=== PATIENT | female | born 1970 | race African-American/Black ===

== ENCOUNTER 2021-03-19 17:25 | Emergency (ER) | payer OTHER ==
[~2021-03-19] VITALS: Ht 167.6 cm; Wt 85.0 kg
[2021-03-19] MEDS ORDERED: IV NORMAL SALINE 1000ML BAG 1,000 ML IV ONE (20:45)
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
[2021-03-19 23:00] VITALS: BP 138/70
== END 2021-03-19 23:13 | disposition home or self-care (01) ==
LOC: ER 17:25
DX: K14.8 Other diseases of tongue (principal); F31.9 Bipolar disorder, unspecified; F20.9 Schizophrenia, unspecified; Z88.2 Allergy status to sulfonamides; Z88.5 Allergy status to narcotic agent
CPT/HCPCS: 96360; 99283; J7030

== ENCOUNTER 2021-03-23 17:03 | Emergency (ER) | payer OTHER | END 2021-03-23 22:15 | disposition left against medical advice (07) | LOC: ER 17:03 | DX: R60.0 Localized edema (principal); Z53.21 Procedure and treatment not carried out due to patient leaving prior to being seen by health care provider ==

== ENCOUNTER → 2021-04-17 | Outpatient (CLI) | payer OTHER ==
[2021-03-19 23:00] VITALS: BP 138/70
--- NOTE | 2021-04-19 17:55 | CARD ---
MR#: [id number] Date of Study: 04/17/2021 Ordering Physician: YOVANY PAYTON, Referring Physician: YOVANY PAYTON Tech: Taj Das [facility] APPROVED REPORT EXAM: Two-dimensional and M-mode echocardiogram with Doppler and color Doppler. Other Information Quality : AverageHR: 77bpm Rhythm : NSR INDICATION Peripheral Edema RISK FACTORS Pulmonary disease 2D DIMENSIONS Left Atrium(2D)3.0 (1.6-4.0cm)IVSd1.0 (0.7-1.1cm) Aortic Root(2D)2.5 (2.0-3.7cm)LVDd4.3 (3.9-5.9cm) LVOT Diameter2.0 (1.8-2.4cm)PWd0.9 (0.7-1.1cm) LVDs2.6 (2.5-4.0cm)FS (%) 39.3 % SV59.7 mlLVEF(%)70.1 (>50%) Aortic Valve AoV Peak Gentry.149.1cm/sAoV VTI29.1cm AO Peak GR.8.9mmHgLVOT Peak Gentry.99.2cm/s LVOT VTI 21.36cmAO Mean GR.5mmHg KEON (VMAX)1.41cm4FCC (VTI)2.20cm2 Mitral Valve MV E Qxtxmgdf82.9cm/sMV DECEL IINZ262mh MV A Mmgukahe33.5cm/sMV VAY31fa E/A Ratio1.3MVA (PHT)4.31cm2 TDI E/Lateral E'6.2E/Medial E'8.5 Pulmonary Valve PV Peak Jwekxkaw68.9cm/sPV Peak Grad.3mmHg Tricuspid Valve TR P. Mqqssoit737mo/sTR Peak Gr.32mmHg Pulmonary Vein S1 Qljbvjcr25.1cm/sD2 Leixcgfy74.2cm/s LEFT VENTRICLE The left ventricle is normal size. There is normal left ventricular wall thickness. The left ventricu lar systolic function is normal and the ejection fraction is within normal range. EF 55% There is nor mal LV segmental wall motion. The left ventricular diastolic function and filling is normal for age. No left ventricle thrombus noted on this study. There is no ventricular septal defect visualized. The re is no left ventricular aneurysm. There is no mass noted in the left ventricle. RIGHT VENTRICLE The right ventricle is normal size. There is normal right ventricular wall thickness. The right ventr icular systolic function is normal. ATRIA The left atrium size is normal. The right atrium size is normal. The interatrial septum is intact wit h no evidence for an atrial septal defect or patent foramen ovale as noted on 2-D or Doppler imaging. AORTIC VALVE The aortic valve is normal in structure and function. The aortic valve is trileaflet. Doppler and Col or Flow revealed no significant aortic regurgitation. There is no significant aortic valvular stenosi s. There is no aortic valvular vegetation. MITRAL VALVE The mitral valve is normal in structure and function. There is no evidence of mitral valve prolapse. There is no mitral valve stenosis. Doppler and Color-flow revealed trace mitral regurgitation. TRICUSPID VALVE The tricuspid valve is normal in structure and function. Doppler and Color Flow revealed trace tricus pid regurgitation. The PA pressure was estimated at 25 mmHg. There is no tricuspid valve prolapse or vegetation. There is no tricuspid valve stenosis. PULMONIC VALVE The pulmonary valve is normal in structure and function. Doppler and Color Flow revealed no pulmonic valvular regurgitation. There is no pulmonic valvular stenosis. GREAT VESSELS The aortic root is normal in size. The ascending aorta is normal in size. The IVC is normal in size a nd collapses >50% with inspiration. PERICARDIAL EFFUSION There is no pleural effusion. There is no evidence of significant pericardial effusion. Critical Notification Critical Value: No <Conclusion> The left ventricular systolic function is normal and the ejection fraction is within normal range. EF 55% There is normal LV segmental wall motion. Doppler and Color Flow revealed trace tricuspid regurgitation. The PA pressure was estimated at 25 mm Hg. Signed by : Lemuel Foster, Electronically Approved : 04/19/2021 17:54:57
== END ==
LOC: ECHO 09:20
PROVIDERS: ATTEND Family Medicine Sports Medicine
DX: R60.9 Edema, unspecified (principal)
CPT/HCPCS: 93306